=== PATIENT | female | born 1970 | race African-American/Black ===

== ENCOUNTER 2021-09-26 10:59 | Emergency (ER) | payer BC, MEDICAID ==
[~2021-09-26] VITALS: Ht 170.2 cm; Wt 88.0 kg
[2021-09-26] MEDS ORDERED: ONDANSETRON HCL 4MG TABLET PO ONE (16:00)
[2021-09-26 16:53] LABS: CLARITY URINE CLEAR (CLEAR); COLOR URINE YELLOW (YELLOW); KETONES URINE NEGATIVE (NEGATIVE); LEUKOCYTE ESTERASE URINE NEGATIVE (NEGATIVE); NITRITE URINE NEGATIVE (NEGATIVE); OCCULT BLOOD URINE NEGATIVE (NEGATIVE); PH URINE 7.5 (4.5-8.0); PROTEIN URINE NEGATIVE (NEGATIVE); SPECIFIC GRAVITY URINE 1.019 (1.005-1.030); UROBILINOGEN URINE 0.2 E.U./dL (0.2-1.0)
[2021-09-26 17:09] VITALS: BP 149/87
[2021-09-26] MEDS ORDERED: ACETAMINOPHEN 325MG TABLET PO ONE (17:15)
[2021-09-26] MEDS ORDERED: AMOX-424 MT (18:17)
[2021-09-26] MEDS ORDERED: ONDA4TAB5 MT (18:18)
== END 2021-09-26 18:27 | disposition home or self-care (01) ==
LOC: ER 12:06
DX: K04.7 Periapical abscess without sinus (principal); R19.7 Diarrhea, unspecified; R79.89 Other specified abnormal findings of blood chemistry
CPT/HCPCS: 71045; 81003; 87070; 87430; 93005; 99285; Q0162

== ENCOUNTER 2022-11-29 10:38 | Emergency (ER) | payer MEDICAID, OTHER ==
[~2022-11-29] VITALS: Ht 167.6 cm; Wt 82.0 kg
[~2022-11-29 10:38] MED LIST: AMOX-424 MT; ONDA4TAB5 MT
[2022-11-29] MEDS ORDERED: MORPHINE SULFATE 4 MG/ML CPJ (NOT FOR IM USE) IV ONE ×2 (10:45→13:15)
[2022-11-29] MEDS ORDERED: ONDANSETRON HCL 4MG/2ML INJ IV ONE (10:45)
[2022-11-29 11:40] LABS: BASOPHILS % 1.4 % (0.0-2.0); EOSINOPHILS % 0.7 % (0.0-5.0); HEMATOCRIT. 42.2 % (36.0-48.0); HEMOGLOBIN. 14.5 g/dL (12.0-16.0); LYMPHOCYTES % 19.6 % (20.0-50.0); MEAN CORPUSCULAR HEMOGLOBIN 34.1 pg (28.0-32.0); MEAN CORPUSCULAR VOLUME 98.8 fL (81.0-99.0); MEAN PLATELET VOLUME 8.7 fl (7.4-10.4); MONOCYTES % 8.4 % (2.0-8.0); NEUTROPHILS % 69.9 % (40.0-76.0); PLATELET 213 x1000/uL (130-400); RED BLOOD CELL COUNT 4.27 mill/uL (4.2-5.4)
[2022-11-29 11:42] LABS: CHLORIDE 102 mEq/L (98-107)
[2022-11-29 11:54] LABS: CLARITY URINE CLOUDY (CLEAR); COLOR URINE YELLOW (YELLOW); KETONES URINE 1+ (NEGATIVE); LEUKOCYTE ESTERASE URINE NEGATIVE (NEGATIVE); NITRITE URINE NEGATIVE (NEGATIVE); OCCULT BLOOD URINE NEGATIVE (NEGATIVE); PROTEIN URINE TRACE (NEGATIVE)
[2022-11-29 12:34] LABS: HCG SCREEN NEGATIVE
[2022-11-29] MEDS ORDERED: KETOROLAC 15MG/ML VIAL IV ONE (13:15)
[2022-11-29] MEDS ORDERED: ACET-2708 MT (16:20)
[2022-11-29 16:30] VITALS: BP 132/82
[2022-11-29] MEDS ORDERED: HYDROCODONE/ACETAMINOPHEN 5/325MG TABLET PO ONE (16:30)
== END 2022-11-29 18:00 | disposition home or self-care (01) ==
LOC: ER 10:38
DX: N83.202 Unspecified ovarian cyst, left side (principal); I10 Essential (primary) hypertension; Z88.0 Allergy status to penicillin; Z98.890 Other specified postprocedural states
CPT/HCPCS: 36415; 71045; 74176; 76830; 76856; 80053; 81003; 81025; 83690; 83880; 84484; 84703; 85025; 96374; 96375; 96376; 99285; J1885; J2270; J2405; Z7610

== ENCOUNTER 2023-10-13 07:52 | Emergency (ER) | payer MEDICAID ==
[~2023-10-13] VITALS: Ht 170.2 cm; Wt 94.0 kg
[~2023-10-13 07:52] MED LIST changes: +ACET-2708 MT
[2023-10-13 07:54] VITALS: TEMP 98.2; O2SAT 100
[2023-10-13] MEDS ORDERED: IBUPROFEN 600MG TABLET PO ONE (08:30)
[2023-10-13 10:12] VITALS: BP 154/88; PULSE 65; RESP 17
== END 2023-10-13 10:14 | disposition home or self-care (01) ==
LOC: ER 07:52
DX: M25.572 Pain in left ankle and joints of left foot (principal); M54.6 Pain in thoracic spine; I10 Essential (primary) hypertension; F12.10 Cannabis abuse, uncomplicated
CPT/HCPCS: 71046; 73610; 73630; 29515; 99284; Z7610